=== PATIENT | male | born 1975 | race Caucasian/White ===

== ENCOUNTER 2016-05-04 13:31 | Emergency (ER) | payer MEDICAID, OTHER ==
[~2016-05-04] VITALS: Ht 165.1 cm; Wt 65.8 kg
[2016-05-04 13:46] VITALS: BP 122/79
--- NOTE | 2016-05-04 14:45 | NUR ---
PATIENT LEFT WITHOUT BEING SEEN BY DR. YORK. NO FURTHER CARE PROVIDED FOR PATIENT.
== END 2016-05-04 14:45 | disposition left against medical advice (07) ==
LOC: MED 13:40
DX: M79.632 Pain in left forearm (principal); M79.631 Pain in right forearm; Z53.21 Procedure and treatment not carried out due to patient leaving prior to being seen by health care provider